=== PATIENT | female | born 1980 | race Two or more races ===

== ENCOUNTER 2018-09-17 08:16 | Emergency (ER) | payer MEDICAID ==
[~2018-09-17] VITALS: Ht 154.9 cm; Wt 79.4 kg
[~2018-09-17 08:16] MED LIST: CEPH-91
[2018-09-17 08:24] VITALS: BP 123/79
== END 2018-09-17 09:03 | disposition home or self-care (01) ==
LOC: ER 08:16
DX: M79.645 Pain in left finger(s) (principal); Z88.5 Allergy status to narcotic agent; Z79.899 Other long term (current) drug therapy; Z98.51 Tubal ligation status
CPT/HCPCS: 29125; 29130; 73130

== ENCOUNTER 2019-01-04 13:23 | Emergency (ER) | payer MEDICAID ==
[~2019-01-04] VITALS: Ht 154.9 cm; Wt 77.1 kg
[2019-01-04 14:17] LABS: Basophils # (auto) 0.1 uL; Eosinophils # (auto) 0.2 uL; Mean Corpuscular Volume 72.1 fL (80.0-100.0); Monocytes # (auto) 0.9 uL; Nucleated Red Blood Cells % 0.1 %
[2019-01-04 14:18] LABS: Basophils % (auto) 0.8 % (0.0-2.0); Hematocrit 37.9 % (36.0-46.0); Hemoglobin 12.4 g/dL (12.2-16.2); Lymphocytes # (auto) 1.2 uL; Lymphocytes % (auto) 15.2 % (10.0-50.0); Mean Corpuscular Hemoglobin 23.5 pg (28.0-32.0); Mean Corpuscular Hgb Conc. 32.7 g/dL (32.0-36.0); Monocytes % (auto) 11.2 % (0.0-12.0); Neutrophils # (auto) 5.4 uL; Neutrophils % (auto) 70.8 % (37.0-80.0); Platelet Count (auto) 226 10^3/uL (140-450); Red Blood Cells 5.26 10^6/uL (4.0-5.20); Red Cell Distribution Width 17.3 % (11.8-14.3); White Blood Cell 7.6 10^3/uL (4.4-10.8)
[2019-01-04 14:30] LABS: Alanine Aminotransferase 31 U/L (13-56); Albumin 3.8 g/dL (3.4-5.0); Anion Gap 6 (5-15); Aspartate Aminotransferase 14 U/L (15-37); BUN/Creatinine Ratio 20.6; Blood Urea Nitrogen 14 mg/dL (7-18); Calcium 8.8 mg/dL (8.5-10.1); Carbon Dioxide 26 mmol/L (21-32); Chloride 107 mmol/L (98-107); GFR African American 126 mL/min; GFR Non-African American 104 mL/min; Glucose 98 mg/dL (74-106); Sodium 139 mmol/L (136-145)
[2019-01-04 14:35] LABS: Alkaline Phosphatase 76 U/L (45-117); Bilirubin, Total 0.2 mg/dL (0.2-1.0); Total Protein 7.9 g/dL (6.4-8.2)
[2019-01-04] MEDS ORDERED: cefTRIAXone SOD 1,000 MG VL IM ONE (16:00)
[2019-01-04] MEDS ORDERED: KETOROLAC TROMETH 60MG/2ML VIAL IM ONE ×3 (16:30→16:45)
[2019-01-04 16:54] VITALS: BP 143/84
== END 2019-01-04 17:57 | disposition home or self-care (01) ==
LOC: ER 13:35
DX: J20.9 Acute bronchitis, unspecified (principal); R07.89 Other chest pain; Z98.51 Tubal ligation status; Z88.6 Allergy status to analgesic agent
CPT/HCPCS: 36415; 71046; 80053; 84484; 85025; 93005; 96372; 99284; J0696; J1885

== ENCOUNTER 2019-10-20 12:13 | Emergency (ER) | payer MEDICAID ==
[~2019-10-20] VITALS: Ht 154.9 cm; Wt 79.4 kg
[2019-10-20 13:31] LABS: Urine Bacteria NONE SEEN /hpf (None Seen); Urine Blood Negative /uL (Negative); Urine Specific Gravity 1.024 (1.001-1.035); Urine WBC 26 /hpf (0 - 5)
[2019-10-20 14:02] LABS: Basophils # (auto) 0.1 uL; Basophils % (auto) 0.7 % (0.0-2.0); Eosinophils # (auto) 0.1 uL; Eosinophils % (auto) 1.3 % (0.0-7.0); Hematocrit 33.3 % (36.0-46.0); Hemoglobin 10.2 g/dL (12.2-16.2); Lymphocytes # (auto) 1.7 uL; Lymphocytes % (auto) 21.8 % (10.0-50.0); Mean Corpuscular Hemoglobin 20.3 pg (28.0-32.0); Mean Corpuscular Hgb Conc. 30.7 g/dL (32.0-36.0); Mean Corpuscular Volume 66.2 fL (80.0-100.0); Monocytes # (auto) 0.6 uL; Monocytes % (auto) 7.8 % (0.0-12.0); Neutrophils # (auto) 5.4 uL; Neutrophils % (auto) 68.4 % (37.0-80.0); Platelet Count (auto) 277 10^3/uL (140-450); Red Blood Cells 5.03 10^6/uL (4.0-5.20); Red Cell Distribution Width 17.6 % (11.8-14.3); White Blood Cell 7.9 10^3/uL (4.4-10.8)
[2019-10-20 14:23] LABS: Albumin 3.4 g/dL (3.4-5.0); Anion Gap 6 (5-15); Blood Urea Nitrogen 13 mg/dL (7-18); Calcium 8.3 mg/dL (8.5-10.1); Carbon Dioxide 23 mmol/L (21-32); Chloride 111 mmol/L (98-107); Glucose 89 mg/dL (74-106); Potassium 3.9 mmol/L (3.5-5.1); Sodium 140 mmol/L (136-145)
[2019-10-20 14:28] LABS: Alanine Aminotransferase 20 U/L (13-56); Alkaline Phosphatase 73 U/L (45-117); Aspartate Aminotransferase 11 U/L (15-37); BUN/Creatinine Ratio 22.4; Bilirubin, Total 0.2 mg/dL (0.2-1.0); GFR African American 150 mL/min; GFR Non-African American 124 mL/min; Total Protein 7.7 g/dL (6.4-8.2)
[2019-10-20] MEDS ORDERED: IOHEXOL 350 MG/ML 100ML IJ ONE (14:49)
[2019-10-20 18:15] VITALS: BP 144/87
== END 2019-10-20 18:19 | disposition home or self-care (01) ==
LOC: ER 12:13
DX: R07.9 Chest pain, unspecified (principal); N39.0 Urinary tract infection, site not specified; Z98.51 Tubal ligation status; Z88.8 Allergy status to other drugs, medicaments and biological substances
CPT/HCPCS: 36415; 71046; 71275; 80053; 81001; 84484; 85025; 99285; Q9967

== ENCOUNTER → 2019-10-21 | Emergency (ER) | payer MEDICAID ==
[~2019-10-21] VITALS: Ht 154.9 cm; Wt 79.4 kg
[2019-10-21 13:43] VITALS: BP 115/72
== END | disposition home or self-care (01) ==
LOC: ER 11:19
DX: R07.89 Other chest pain (principal); Z88.5 Allergy status to narcotic agent; Z79.899 Other long term (current) drug therapy
CPT/HCPCS: 36415; 84484; 85379; 93005

== ENCOUNTER 2019-11-01 13:01 | Emergency (ER) | payer OTHER, MEDICAID ==
[~2019-11-01] VITALS: Ht 154.9 cm; Wt 79.4 kg
[2019-11-01] MEDS ORDERED: MORPHINE SULFATE 10 MG/ML INJ 1ML SDV IM ONE (15:00)
[2019-11-01] MEDS ORDERED: PROMETHAZINE HCL 25 MG/ML 1ML IM ONE (15:00)
[2019-11-01 16:21] VITALS: BP 129/87
--- NOTE | 2019-11-03 09:44 | NUR ---
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
== END 2019-11-01 16:36 | disposition home or self-care (01) ==
LOC: EDBD 13:01 → ER 13:01
DX: S32.592A Other specified fracture of left pubis, initial encounter for closed fracture (principal); S32.512A Fracture of superior rim of left pubis, initial encounter for closed fracture; Z88.5 Allergy status to narcotic agent; Z79.2 Long term (current) use of antibiotics; V43.52XA Car driver injured in collision with other type car in traffic accident, initial encounter; Y93.89 Activity, other specified; Y92.410 Unspecified street and highway as the place of occurrence of the external cause; Y99.8 Other external cause status
CPT/HCPCS: 72192; 73502; 96372; 99284; J2270; J2550

== ENCOUNTER 2021-06-01 10:46 | Emergency (ER) | payer MEDICAID ==
[~2021-06-01] VITALS: Ht 154.9 cm; Wt 86.2 kg
[2021-06-01] MEDS ORDERED: SODIUM CHLORIDE 0.9% 1,000 ML IV ONE (11:00)
[2021-06-01] MEDS ORDERED: SODIUM CHLORIDE 0.9% 500 ML IVB ONE (11:00)
[2021-06-01 12:14] LABS: Basophils # (auto) 0.1 10 ^3/uL (0-0.2); Eosinophils # (auto) 0.1 10 ^3/uL (0-0.8); Monocytes # (auto) 0.3 10 ^3/uL (0-1.3); White Blood Cell 6.6 10^3/uL (4.4-10.8)
[2021-06-01 12:16] LABS: Basophils % (auto) 0.8 % (0.0-2.0); Eosinophils % (auto) 1.2 % (0.0-7.0); Hematocrit 34.9 % (36.0-46.0); Hemoglobin 11.4 g/dL (12.2-16.2); Lymphocytes # (auto) 1.4 10 ^3/uL (0.4-5.4); Lymphocytes % (auto) 21.4 % (10.0-50.0); Mean Corpuscular Hemoglobin 22.4 pg (28.0-32.0); Mean Corpuscular Hgb Conc. 32.7 g/dL (32.0-36.0); Mean Corpuscular Volume 68.6 fL (80.0-100.0); Monocytes % (auto) 5.1 % (0.0-12.0); Neutrophils # (auto) 4.7 10 ^3/uL (1.6-8.6); Neutrophils % (auto) 71.5 % (37.0-80.0); Nucleated Red Blood Cells % 0.1 %; Red Blood Cells 5.08 10^6/uL (4.0-5.20); Red Cell Distribution Width 17.2 % (11.8-14.3)
[2021-06-01 12:37] LABS: Albumin 3.5 g/dL (3.4-5.0); Calcium 8.7 mg/dL (8.5-10.1); Magnesium 2.4 mg/dL (1.6-2.6); Potassium 3.6 mmol/L (3.5-5.1)
[2021-06-01 12:39] LABS: BUN/Creatinine Ratio 18.6
[2021-06-01 12:40] LABS: Bilirubin, Total 0.2 mg/dL (0.2-1.0); Total Protein 7.5 g/dL (6.4-8.2)
[2021-06-01 17:08] VITALS: BP 139/76
== END 2021-06-01 17:17 | disposition home or self-care (01) ==
LOC: ER 10:46
DX: S09.90XA Unspecified injury of head, initial encounter (principal); G44.329 Chronic post-traumatic headache, not intractable; D50.9 Iron deficiency anemia, unspecified; R73.9 Hyperglycemia, unspecified; Z98.51 Tubal ligation status; W19.XXXA Unspecified fall, initial encounter; Y93.89 Activity, other specified; Y99.8 Other external cause status; Y92.89 Other specified places as the place of occurrence of the external cause
CPT/HCPCS: 36415; 70450; 80053; 83735; 84702; 85025; 93005

== ENCOUNTER 2021-07-20 17:43 | Emergency (ER) | payer MEDICAID ==
[~2021-07-20] VITALS: Ht 154.9 cm; Wt 77.1 kg
[2021-07-20] MEDS ORDERED: SODIUM CHLORIDE 0.9% 1,000 ML IV ONE (18:45)
[2021-07-20] MEDS ORDERED: KETOROLAC TROMETH 30 MG/ML 1ML VIAL IV ONE (18:45)
[2021-07-20 19:35] LABS: Basophils # (auto) 0 10 ^3/uL (0-0.2); Basophils % (auto) 0.2 % (0.0-2.0); Eosinophils # (auto) 0 10 ^3/uL (0-0.8); Hematocrit 40.5 % (36.0-46.0); Hemoglobin 12.9 g/dL (12.2-16.2); Lymphocytes # (auto) 0.5 10 ^3/uL (0.4-5.4); Mean Corpuscular Hemoglobin 22.3 pg (28.0-32.0); Mean Corpuscular Hgb Conc. 31.9 g/dL (32.0-36.0); Mean Corpuscular Volume 69.7 fL (80.0-100.0); Monocytes # (auto) 0.4 10 ^3/uL (0-1.3); Monocytes % (auto) 8.5 % (0.0-12.0); Neutrophils # (auto) 3.3 10 ^3/uL (1.6-8.6); Neutrophils % (auto) 80.3 % (37.0-80.0); Nucleated Red Blood Cells % 0.4 %; Red Blood Cells 5.81 10^6/uL (4.0-5.20); Red Cell Distribution Width 17.7 % (11.8-14.3); White Blood Cell 4.1 10^3/uL (4.4-10.8)
[2021-07-20 19:52] LABS: Magnesium 2.3 mg/dL (1.6-2.6)
[2021-07-20 20:01] LABS: Beta HCG, Quantitative < 1 mlU/mL (1-3); Lactate Dehydrogenase 388 U/L (84-246)
[2021-07-20 21:15] LABS: INR 1.04 (0.9-1.15); Partial Thromboplastin Time 31.9 sec (23.6-33.0)
[2021-07-20 22:36] LABS: Albumin 3.6 g/dL (3.4-5.0); Calcium 8.7 mg/dL (8.5-10.1); Potassium 3.2 mmol/L (3.5-5.1)
[2021-07-20 22:39] LABS: BUN/Creatinine Ratio 11.4; Bilirubin, Total 0.4 mg/dL (0.2-1.0)
[2021-07-21] MEDS ORDERED: BENZ100C19 PO (00:44)
[2021-07-21] MEDS ORDERED: IBUP600T28 PO (00:44)
[2021-07-21 00:45] VITALS: BP 108/69
== END 2021-07-21 01:02 | disposition home or self-care (01) ==
LOC: EDBD 17:43 → ER 17:43
DX: U07.1 COVID-19 (principal); Z98.51 Tubal ligation status; Z98.890 Other specified postprocedural states
CPT/HCPCS: 36415; 71045; 80053; 82728; 83605; 83615; 83690; 83735; 83880; 84484; 84702; 85025; 85379; 85610; 85730; 87426; 93005; 96361; 96374; 99285; J1885; J7030

== ENCOUNTER 2021-07-23 12:15 | Inpatient (IN) | payer MEDICAID ==
[~2021-07-23] VITALS: Ht 154.9 cm; Wt 87.0 kg
[~2021-07-23 12:15] MED LIST changes: +BENZ100C19 PO; +IBUP600T28 PO
[2021-07-23] MEDS ORDERED: AZITHROMYCIN 500MG/ 250ML 250 ML IV ONE (13:00)
[2021-07-23] MEDS ORDERED: cefTRIAXone 1GM/50ML D5W 50 ML IV ONE (13:00)
[2021-07-23] MEDS ORDERED: DexAMETHasone SOD PHOS 10MG/1ML VIAL INJ IV ONE (13:00)
[2021-07-23 14:01] LABS: Basophils # (auto) 0 10 ^3/uL (0-0.2); Eosinophils # (auto) 0 10 ^3/uL (0-0.8); Lymphocytes # (auto) 0.6 10 ^3/uL (0.4-5.4); White Blood Cell 5.2 10^3/uL (4.4-10.8)
[2021-07-23 14:05] LABS: Basophils % (auto) 0.2 % (0.0-2.0); Hematocrit 34.5 % (36.0-46.0); Hemoglobin 11.6 g/dL (12.2-16.2); Lymphocytes % (auto) 12.4 % (10.0-50.0); Mean Corpuscular Hemoglobin 23.1 pg (28.0-32.0); Mean Corpuscular Hgb Conc. 33.6 g/dL (32.0-36.0); Mean Corpuscular Volume 68.5 fL (80.0-100.0); Monocytes # (auto) 0.5 10 ^3/uL (0-1.3); Monocytes % (auto) 9.1 % (0.0-12.0); Neutrophils % (auto) 78.3 % (37.0-80.0); Red Blood Cells 5.03 10^6/uL (4.0-5.20); Red Cell Distribution Width 17.7 % (11.8-14.3)
[2021-07-23 14:23] LABS: Albumin 2.9 g/dL (3.4-5.0); Potassium 3.7 mmol/L (3.5-5.1)
[2021-07-23 14:30] LABS: BUN/Creatinine Ratio 8.2; Bilirubin, Total 0.3 mg/dL (0.2-1.0); Total Protein 7.2 g/dL (6.4-8.2)
[2021-07-23 16:20] LABS: Urine Bacteria NONE SEEN /hpf (None Seen); Urine Blood Negative /uL (Negative); Urine Specific Gravity 1.005 (1.001-1.035); Urine WBC 1 /hpf (0 - 5)
[2021-07-23] MEDS ORDERED: REMDESIVIR PER PHARMACY 0 ML IV SCH (19:15)
[2021-07-23] MEDS ORDERED: MORPHINE SULFATE INJECTION 2 MG/ML SYRG IV PRN (19:15)
[2021-07-23] MEDS ORDERED: NITROGLYCERIN 0.4 MG SL TAB SL PRN (19:15)
[2021-07-23] MEDS ORDERED: LACTULOSE 20Gm/30ML SOLN PO PRN (19:30)
[2021-07-23] MEDS ORDERED: ACETAMINOPHEN 500 MG TAB PO PRN (19:30)
[2021-07-23] MEDS ORDERED: TEMAZEPAM 15 MG CAP PO PRN (19:30)
[2021-07-23] MEDS ORDERED: traMADol HCL 50 MG TAB PO PRN (19:30)
[2021-07-23] MEDS ORDERED: PROMETHAZINE HCL 25 MG/ML 1ML IV PRN (19:30)
[2021-07-23] MEDS: SODIUM CHLORIDE 0.9% 1,000 ML IV SCH (20:22)
[2021-07-23 21:16] VITALS: BP 118/67
[2021-07-23] MEDS: ENOXAPARIN SOD 40 MG/0.4 ML SYRINGE SC SCH (22:17)
[2021-07-23] MEDS: DOXYCYCLINE 100 MG TAB/CAP PO SCH (22:17)
[2021-07-23 22:48] VITALS: BP 107/68
[2021-07-24 05:00] VITALS: BP 101/69
[2021-07-24] MEDS ORDERED: REMDESIVIR PER PHARMACY 0 ML IV SCH (06:45)
[2021-07-24] MEDS: BUDESONIDE (INHALATION) 180 MCG IH IN SCH ×3 (07:24→21:10)
[2021-07-24] MEDS: ALBUTEROL SULF HFA 90MCG INH 200DOSE IN PRN ×3 (07:24→12:44)
[2021-07-24 07:34] LABS: Basophils # (auto) 0 10 ^3/uL (0-0.2); Eosinophils # (auto) 0 10 ^3/uL (0-0.8); Nucleated Red Blood Cells % 0.2 %
[2021-07-24 07:38] LABS: Basophils % (auto) 0.2 % (0.0-2.0); Hematocrit 31.5 % (36.0-46.0); Hemoglobin 10.6 g/dL (12.2-16.2); Lymphocytes # (auto) 0.6 10 ^3/uL (0.4-5.4); Lymphocytes % (auto) 17.1 % (10.0-50.0); Mean Corpuscular Hgb Conc. 33.8 g/dL (32.0-36.0); Monocytes # (auto) 0.5 10 ^3/uL (0-1.3); Monocytes % (auto) 16.2 % (0.0-12.0); Neutrophils # (auto) 2.2 10 ^3/uL (1.6-8.6); Neutrophils % (auto) 66.5 % (37.0-80.0); Red Blood Cells 4.57 10^6/uL (4.0-5.20); Red Cell Distribution Width 17.7 % (11.8-14.3); White Blood Cell 3.3 10^3/uL (4.4-10.8)
[2021-07-24 07:44] LABS: Mean Corpuscular Volume 68.9 fL (80.0-100.0)
[2021-07-24 07:45] LABS: Mean Corpuscular Hemoglobin 23.2 pg (28.0-32.0)
[2021-07-24 07:51] LABS: Albumin 2.8 g/dL (3.4-5.0); Potassium 4.1 mmol/L (3.5-5.1)
[2021-07-24 07:54] LABS: BUN/Creatinine Ratio 15.8; Bilirubin, Total 0.3 mg/dL (0.2-1.0)
[2021-07-24 08:49] VITALS: BP 116/76
[2021-07-24] MEDS: SODIUM CHLORIDE 0.9% 1,000 ML IV SCH ×2 (08:56→22:10)
[2021-07-24] MEDS: DOXYCYCLINE 100 MG TAB/CAP PO SCH ×2 (09:00→22:00)
[2021-07-24] MEDS: ZINC SULFATE 220mg CAP or TAB PO SCH (09:00)
[2021-07-24] MEDS: IVERMECTIN 3 MG TAB PO SCH (09:00)
[2021-07-24] MEDS: ASCORBIC ACID 1,000 MG TAB PO SCH (09:01)
[2021-07-24] MEDS: CHOLECALCIFEROL (VITD3) 2,000 UNIT CAP/TAB PO SCH (09:02)
[2021-07-24] MEDS: ENOXAPARIN SOD 40 MG/0.4 ML SYRINGE SC SCH ×2 (09:02→22:02)
[2021-07-24 12:52] VITALS: BP 103/67
[2021-07-24] MEDS: AZITHROMYCIN 500MG/ 250ML 250 ML IV SCH (14:38)
[2021-07-24] MEDS: cefTRIAXone 1GM/50ML D5W 50 ML IV SCH (14:38)
[2021-07-24] MEDS: DexAMETHasone SOD PHOS 10MG/1ML VIAL INJ IV SCH (14:38)
[2021-07-24] MEDS ORDERED: REMDESIVIR 200 MG in NS 210ml LOADING DOSE ADULT IV ONE (15:00)
[2021-07-24 16:47] VITALS: BP 110/80
[2021-07-24 22:00] VITALS: BP 97/68
[2021-07-25 04:48] VITALS: BP 96/66
[2021-07-25 06:47] LABS: Basophils # (auto) 0 10 ^3/uL (0-0.2); Basophils % (auto) 0.1 % (0.0-2.0); Eosinophils # (auto) 0 10 ^3/uL (0-0.8); Hematocrit 28.9 % (36.0-46.0); Hemoglobin 9.6 g/dL (12.2-16.2); Lymphocytes # (auto) 1.2 10 ^3/uL (0.4-5.4); Lymphocytes % (auto) 29.8 % (10.0-50.0); Mean Corpuscular Hgb Conc. 33.2 g/dL (32.0-36.0); Monocytes # (auto) 0.5 10 ^3/uL (0-1.3); Monocytes % (auto) 13.2 % (0.0-12.0); Neutrophils # (auto) 2.2 10 ^3/uL (1.6-8.6); Neutrophils % (auto) 55.9 % (37.0-80.0); Nucleated Red Blood Cells % 0.1 %; Red Blood Cells 4.11 10^6/uL (4.0-5.20); Red Cell Distribution Width 17.4 % (11.8-14.3); White Blood Cell 3.9 10^3/uL (4.4-10.8)
[2021-07-25 06:48] LABS: Mean Corpuscular Hemoglobin 23.4 pg (28.0-32.0); Mean Corpuscular Volume 70.4 fL (80.0-100.0)
[2021-07-25 06:53] LABS: Potassium 3.4 mmol/L (3.5-5.1)
[2021-07-25 07:05] LABS: Albumin 2.2 g/dL (3.4-5.0); BUN/Creatinine Ratio 28.6; Bilirubin, Total 0.2 mg/dL (0.2-1.0); CRP High Sensitivity 1.96 mg/dL (< 0.3); Calcium 7.3 mg/dL (8.5-10.1); Total Protein 5.8 g/dL (6.4-8.2)
[2021-07-25 08:38] VITALS: BP 104/68
[2021-07-25] MEDS: AZITHROMYCIN 500MG/ 250ML 250 ML IV SCH (08:52)
[2021-07-25] MEDS: DexAMETHasone SOD PHOS 10MG/1ML VIAL INJ IV SCH (08:52)
[2021-07-25] MEDS: ZINC SULFATE 220mg CAP or TAB PO SCH (08:52)
[2021-07-25] MEDS: IVERMECTIN 3 MG TAB PO SCH (08:52)
[2021-07-25] MEDS: cefTRIAXone 1GM/50ML D5W 50 ML IV SCH (08:52)
[2021-07-25] MEDS: ENOXAPARIN SOD 40 MG/0.4 ML SYRINGE SC SCH (08:53)
[2021-07-25] MEDS: ASCORBIC ACID 1,000 MG TAB PO SCH (08:53)
[2021-07-25] MEDS: DOXYCYCLINE 100 MG TAB/CAP PO SCH (08:53)
[2021-07-25] MEDS: CHOLECALCIFEROL (VITD3) 2,000 UNIT CAP/TAB PO SCH (08:53)
[2021-07-25] MEDS: ALBUTEROL SULF HFA 90MCG INH 200DOSE IN PRN (09:16)
[2021-07-25] MEDS: BUDESONIDE (INHALATION) 180 MCG IH IN SCH (09:16)
[2021-07-25] MEDS: SODIUM CHLORIDE 0.9% 1,000 ML IV SCH (10:21)
[2021-07-25 12:40] VITALS: BP 99/70
[2021-07-25] MEDS ORDERED: REMDESIVIR 100mg 100 MG in SODIUM CHL 0.9% 230 ML IV SCH (15:00)
[2021-07-25] MEDS ORDERED: ALBUAER3 IN (15:09)
[2021-07-25] MEDS ORDERED: DOX100T PO (15:09)
[2021-07-25] MEDS ORDERED: DEXA6TAB6 PO (15:09)
[2021-07-25 17:21] VITALS: BP 121/71
[2021-07-25 18:05] VITALS: BP 121/71
== END 2021-07-25 19:30 | disposition home health service (06) | DRG 137 ==
LOC: EDBD 12:15 → ER 12:15 → TELE 19:10 → TELE-WESTW 21:42 → TELE-EAST 07-24 01:05
PROVIDERS: ADMIT Internal Medicine; ATTEND Internal Medicine
PROC: 05HB33Z Insertion of Infusion Device into Right Basilic Vein, Percutaneous Approach (ICD-10-PCS; principal; 2021-07-24)
PROC: B54MZZA Ultrasonography of Right Upper Extremity Veins, Guidance (ICD-10-PCS; 2021-07-24)
PROC: XW033E5 Introduction of Remdesivir Anti-infective into Peripheral Vein, Percutaneous Approach, New Technology Group 5 (ICD-10-PCS; 2021-07-24)
DX: U07.1 COVID-19 (principal); J96.01 Acute respiratory failure with hypoxia; J12.82 Pneumonia due to coronavirus disease 2019; E66.9 Obesity, unspecified; F41.9 Anxiety disorder, unspecified; Z68.36 Body mass index [BMI] 36.0-36.9, adult; Z80.9 Family history of malignant neoplasm, unspecified; Z82.49 Family history of ischemic heart disease and other diseases of the circulatory system; Z83.3 Family history of diabetes mellitus
CPT/HCPCS: 36415; 36600; 71045; 74176; 80053; 81001; 82728; 82805; 83036; 84484; 85025; 85379; 86141; 87426; 93005; 93970; 94640; 96365; 96368; 96375; 99291; G0378; J0696; J1100

== ENCOUNTER 2023-01-22 21:27 | Emergency (ER) | payer MEDICAID, OTHER ==
[~2023-01-22] VITALS: Ht 154.9 cm; Wt 92.0 kg
[~2023-01-22 21:27] MED LIST changes: +ALBUAER3 IN; -BENZ100C19 PO; -CEPH-91; +DEXA6TAB6 PO; +DOX100T PO; -IBUP600T28 PO
[2023-01-22] MEDS ORDERED: IBUP-1456 PO (23:24)
[2023-01-23 00:05] VITALS: BP 143/86
== END 2023-01-22 23:43 | disposition home or self-care (01) ==
LOC: ER 21:30
DX: S83.91XA Sprain of unspecified site of right knee, initial encounter (principal); F41.9 Anxiety disorder, unspecified; Z79.899 Other long term (current) drug therapy; Z98.890 Other specified postprocedural states; Z98.51 Tubal ligation status; W01.0XXA Fall on same level from slipping, tripping and stumbling without subsequent striking against object, initial encounter; Y93.89 Activity, other specified; Y92.89 Other specified places as the place of occurrence of the external cause; Y99.8 Other external cause status
CPT/HCPCS: 29505; 73562

== ENCOUNTER 2023-09-04 16:15 | Emergency (ER) | payer MEDICAID, OTHER ==
[~2023-09-04] VITALS: Ht 154.9 cm; Wt 84.1 kg
[~2023-09-04 16:15] MED LIST changes: +IBUP-1456 PO
[2023-09-04 23:29] VITALS: BP 140/94; PULSE 76; RESP 18; TEMP 97.6; O2SAT 98
[2023-09-04] MEDS ORDERED: CYCL-837 PO (23:42)
[2023-09-04] MEDS ORDERED: ACET500T58 PO (23:42)
== END 2023-09-05 00:38 | disposition home or self-care (01) ==
LOC: EDBD 16:15 → ER 16:15
DX: S39.012A Strain of muscle, fascia and tendon of lower back, initial encounter (principal); S63.91XA Sprain of unspecified part of right wrist and hand, initial encounter; S70.02XA Contusion of left hip, initial encounter; S30.1XXA Contusion of abdominal wall, initial encounter; I72.8 Aneurysm of other specified arteries; Z79.1 Long term (current) use of non-steroidal anti-inflammatories (NSAID); Z79.2 Long term (current) use of antibiotics; Z79.899 Other long term (current) drug therapy; V43.52XA Car driver injured in collision with other type car in traffic accident, initial encounter; Y93.89 Activity, other specified; Y92.410 Unspecified street and highway as the place of occurrence of the external cause; Y99.8 Other external cause status
CPT/HCPCS: 74176

== ENCOUNTER 2024-05-28 20:22 | Emergency (ER) | payer MEDICAID ==
[~2024-05-28] VITALS: Ht 154.9 cm; Wt 83.2 kg
[~2024-05-28 20:22] MED LIST changes: +ACET500T58 PO; +CYCL-837 PO
[2024-05-29 00:04] LABS: Basophils # (auto) 0.1 10 ^3/uL (0-0.2); Basophils % (auto) 0.8 % (0.0-2.0); Eosinophils # (auto) 0.1 10 ^3/uL (0-0.8); Eosinophils % (auto) 0.9 % (0.0-7.0); Lymphocytes # (auto) 2.4 10 ^3/uL (0.4-5.4); Lymphocytes % (auto) 26.8 % (10.0-50.0); Mean Corpuscular Hemoglobin 27.5 pg (28.0-32.0); Mean Corpuscular Hgb Conc. 34.2 g/dL (32.0-36.0); Mean Corpuscular Volume 80.3 fL (80.0-100.0); Monocytes # (auto) 0.6 10 ^3/uL (0-1.3); Monocytes % (auto) 6.5 % (0.0-12.0); Neutrophils # (auto) 5.9 10 ^3/uL (1.6-8.6); Nucleated Red Blood Cells % 0.1 %; Platelet Count (auto) 227 10^3/uL (140-450); Red Blood Cells 5.11 10^6/uL (4.0-5.20); Red Cell Distribution Width 14.8 % (11.8-14.3)
[2024-05-29 00:16] LABS: Alanine Aminotransferase 25 U/L (7-40); Albumin 4.5 g/dL (3.2-4.8); Alkaline Phosphatase 88 U/L (46-116); Anion Gap 9 (5-15); Aspartate Aminotransferase 14 U/L (13-40); BUN/Creatinine Ratio 15.4 (10.0-20.0); Blood Urea Nitrogen 10 mg/dL (9-23); Calcium 9.5 mg/dL (8.7-10.4); Carbon Dioxide 24 mmol/L (20-31); Chloride 107 mmol/L (98-107); Creatine Kinase IFCC 57 U/L (34-145); Glucose 99 mg/dL (74-106); Potassium 3.7 mmol/L (3.5-5.1); Sodium 140 mmol/L (136-145)
[2024-05-29 00:17] LABS: Bilirubin, Total 0.4 mg/dL (0.2-1.0); Total Protein 7.4 g/dL (5.7-8.2)
[2024-05-29] MEDS ORDERED: NAP500T GT (00:39)
[2024-05-29 01:30] VITALS: BP 141/88; PULSE 65; RESP 13; TEMP 97.6; O2SAT 100
[2024-05-29 01:36] LABS: Urine Bacteria FEW /hpf (None Seen); Urine Blood Negative /uL (Negative); Urine Clarity Turbid (Clear); Urine Color Light-Yellow (Yellow); Urine Mucus FEW (None Seen); Urine Protein, UAD Negative (Negative); Urine Urobilinogen Normal (Negative); Urine WBC 4 /hpf (0 - 5); Urine pH 6.5 (5.0-9.0)
== END 2024-05-29 01:37 | disposition home or self-care (01) ==
LOC: ER 20:22
DX: M79.10 Myalgia, unspecified site (principal); F41.9 Anxiety disorder, unspecified; G43.909 Migraine, unspecified, not intractable, without status migrainosus; Z98.890 Other specified postprocedural states; Z79.899 Other long term (current) drug therapy
CPT/HCPCS: 36415; 70450; 80053; 81001; 82550; 85025

== ENCOUNTER 2025-06-03 08:32 | Emergency (ER) | payer MEDICAID ==
[~2025-06-03] VITALS: Ht 154.9 cm; Wt 87.8 kg
[~2025-06-03 08:32] MED LIST changes: +NAP500T GT
[2025-06-03] MEDS: KETOROLAC TROMETH 60MG/2ML VIAL IM ONE (09:15)
--- NOTE | 2025-06-03 09:29 | ED.PDOC ---
Musculoskeletal HPI Comments A 44 YEAR OLD FEMALE PRESENTS TO THE ED WITH COMPLAINT OF L HIP PAIN. PT STATES SHE HAS BEEN HAVING L HIP PAIN FOR THE PAST 4X DAYS. PT STATES HER PAIN IS CONSTANT, NONRADIATING BUT STATES SHE HAS INCREASED PAIN WITH AMBULATING BUT OTHERWISE DENIES ANY OTHER SYMPTOMS. PT DENIES DENIES ANY RECENT INJURY OR FALL. PT STATES SHE WAS MOVING 3X WEEKS PRIOR AND LIFTING HEAVY BOXES. PATIENT DENIES FEVER, CHILLS, SHORTNESS OF BREATH, CHEST PAIN, ABDOMINAL PAIN, NAUSEA, VOMITING, HEADACHE, OR OTHER COMPLAINTS. NO OTHER SYMPTOMS OR MODIFYING FACTORS AT THIS TIME. PATIENT IS ALERT, ORIENTED X 4, AND HAS STEADY GAIT. Chief Complaint: Body Pain Time Seen by MD: 09:23 Primary Care Provider: CINDY Villavicencio Notes: Medications, Allergies Allergies: Coded Allergies: NO KNOWN ALLERGIES (Unverified , 11/01/19) Home Meds Active Scripts Ibuprofen (Ibuprofen) 800 Mg Tab, 1 TAB PO TID, #30 TAB Prov:LEXI BRAVO 06/03/25 Naproxen (NAPROSYN TABLET) 500 Mg Tb, 500 MG GT BID for 10 Days, #20 TAB Prov:NOAH CAMILO MD 05/29/24 Acetaminophen (Acetaminophen) 500 Mg Tab, 500 MG PO Q6HPRN, #30 TAB 0 Refills Prov:RICHARD ARREDONDO 09/04/23 Cyclobenzaprine Hcl (Cyclobenzaprine Hcl) 5 Mg Tab, 1 TAB PO QPM PRN, #14 TAB 0 Refills Prov:RICHARD ARREDONDO 09/04/23 Ibuprofen (Ibuprofen) 800 Mg Tab, 1 TAB PO TID PRN, #30 TAB 0 Refills Prov:RICHARD ARREDONDO 01/22/23 Dexamethasone (Decadron) 6 Mg Tab, 6 MG PO DAILY, #7 TAB Prov:SANTA VALDEZ MD 07/25/21 Albuterol Sulfate (VENTOLIN MDI) 90 Mcg Ih, 90 MCG IN Q4HPRN PRN, #1 INHALER Prov:SANTA VALDEZ MD 07/25/21 Doxycycline Monohydrate (Doxycycline Monohydrate) 100 Mg Tab, 100 MG PO BID, #14 TAB Prov:SANTA VALDEZ MD 07/25/21 Information Source: Patient Mode of Arrival: Ambulatory Brought in by: SELF Location: Left Extremity Location: Hip Timing: Days Severity: Moderate Able to Move Extremity: Yes Bear Weight: Fully Pain: Moderate Hand Dominance: Left Circumstances: Playing Onset of Symptoms: During Exercise Symptoms: Pain DVT Risk Factors: NONE Last Tetanus: UTD Associated signs and symptoms: Hip pain Past Medical History PAST MEDICAL HISTORY: Anxiety Surgical History: , Hernia Repair, Tubal Ligation 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 Family History Family History: Reviewed,noncontributory to illness, Unknown Social History Smoker: Non-Smoker Alcohol: Occasionally Drugs: Denies Drug Use Lives In: Home Constitutional: denies: chills, diaphoresis, fatigue, fever, malaise, sweats, weakness, others EENTM: denies: blurred vision, double vision, ear bleeding, ear discharge, ear drainage, ear pain, ear ringing, eye pain, eye redness, hearing loss, mouth pain, mouth swelling, nasal discharge, nose bleeding, nose congestion, nose pain, photophobia, tearing, throat pain, throat swelling, voice changes, others Respiratory: denies: cough, hemoptysis, orthopnea, SOB at rest, shortness of breath, SOB with excertion, stridor, wheezing, others Cardiovascular: denies: chest pain, dizzy spells, diaphoresis, Dyspnea on exertion, edema, irregular heart beat, left arm pain, lightheadedness, palpitations, PND, syncope, others Gastrointestinal: denies: abdomen distended, abdominal pain, blood streaked bowels, constipated, diarrhea, dysphagia, difficulty swallowing, hematemesis, melena, nausea, poor appetite, poor fluid intake, rectal bleeding, rectal pain, vomiting, others Genitourinary: denies: abnormal vagina bleeding, burning, dyspareunia, dysuria, flank pain, frequency, hematuria, incontinence, pain, , vagina discharge, urgency, others Neurological: denies: dizziness, fainting, headache, left sided numbness, left sided weakness, numbness, paresthesia, pre-existing deficit, right sided numbness, right sided weakness, seizure, speech problems, tingling, tremors, weakness, others Musculoskeletal: reports: joint pain (L HIP), muscle pain; denies: back pain, gout, joint swelling, muscle stiffness, neck pain, others Integumetry: denies: bruises, change in color, change in hair/nails, dryness, laceration, lesions, lumps, rash, wounds, others Allergic/Immunocompromised: denies: Difficulty Healing, Frequent Infections, Hives, Itching, others Hematologic/Lymphatic: denies: anemia, blood clots, easy bleeding, easy bruising, swollen glands, others Endocrine: denies: excessive hunger, excessive sweating, excessive thirst, excessive urination, flushing, intolerance to cold, intolerance to heat, unexplained weight gain, unexplained weight loss, others Psychiatric: denies: anxiety, bipolar disorder, depression, hopeless, panic disorder, schizophrenia, sleepless, suicidal, others All Other Systems: Reviewed and Negative Physical Exam General Appearance: No Apparent Distress, Obese HEENT: Normal ENT Inspection, PERRL/EOMI, Pharynx Normal, TMs Normal Neck: Full Range of Motion, Non-Tender, Normal, Normal Inspection Respiratory: Chest Non-Tender, Lungs Clear, No Accessory Muscle Use, No Respiratory Distress, Normal Breath Sounds Cardiovascular: No Edema, No JVD, No Murmur, No Gallop, Normal Peripheral Pu lses, Regular Rate/Rhythm Breast Exam: Deferred Gastrointestinal: No Organomegaly, Non Tender, No Pulsatile Mass, Normal Bowel Sounds, Soft Genitalia: Deferred Pelvic: Deferred Rectal: Deferred Extremities: No calf tenderness, Normal capillary refill, Normal inspection, Normal range of motion, No pedal edema, Tender (LEFT LATERAL HIP, NO BONY TENDERNESS, SWELLING AND DEFORMITY. NORMAL GAIT. ) Musculoskeletal : Apperance: Normal Neurologic: Alert, solvent mixer II-XII nml as Tested, No Motor Deficits, Normal Affect, Normal Mood, No Sensory Deficits Cerebellar Function: Normal Reflexes: Normal Skin: Dry, Normal Color, Warm Peripheral Pulses: 2+ carotid (R), 2+ carotid (L), 2+ dorsalis pedis (R), 2+ dorsalis pedis (L) Lymphatic: No Adenopathy Was a procedure done? Was a procedure done?: No Differential Diagnosis EXT Differential Diagnosis: Fracture, Sprain, Dislocation, Strain, Rheumatoid, Arthritis, Bursitis Other Differential Diagnosis LUMBAR RADICULOPATHY, DJD X-Ray, Labs, Meds, VS Vital Signs Date Time Temp Pulse Resp B/P (MAP) Pulse Ox O2 Delivery O2 Flow Rate FiO2 06/03/25 08:34 97.7 72 18 160/100 96 97.7 Current Medications Medications (Trade) Dose Ordered Sig/Kamran Route Start Time Stop Time Status Last Admin Ketorolac Tromethamine (Toradol Injection) 60 mg ONCE ONCE IM 06/03/25 09:15 06/03/25 09:16 DC 06/03/25 09:15 PATIENT: EDIL GOSS MACCT: [id number]: [id number] : 1980 LOC: ER ROOM / BED: / AGE / SEX: 44 / F ADM STATUS: REG ER SERVICE 5 ORDERING PHYSICIAN: LEXI BRAVO PROCEDURE(s): LHIP - L HIP COMPLETE XRAY REASON: HX OF LEFT PELVIC BONE FX 2 YEARS AGO. ORDER NUMBER(s): [id number], ACCESSION NUMBER(s): [id number] Left HIP RADIOGRAPH. CLINICAL INDICATION: HX OF LEFT PELVIC BONE FX 2 YEARS AGO. TECHNIQUE: 4 views of the left hip were obtained. FINDINGS: There is no evidence of fracture, subluxation or dislocation.The alignment is within normal limits.The bony mineralization is normal.No radiopaque foreign body is identified. IMPRESSION: 1. No evidence of acute bony injury. ATED BY: MILANA ALTMAN MD DICTATED DATE/TIME: 06/03/25946 SIGNED BY: MILANA ALTMAN MD SIGNED DATE/TIME: 06/03/25946 CC: X-Ray, Labs, Meds, VS Comment COURSE: EXTERNAL MEDICAL RECORDS REVIEWED: [NONE] INDEPENDENT HISTORIANS: [NONE] SOCIAL DETERMINANTS OF HEALTH: [NONE] LABS ORDERED: NONE REVIEWED AND INTERPRETED RESULTS: NONE IMAGING ORDERED: LEFT HIP X-RAY TREATMENTS ORDERED: TORADOL 60 MG, PROCEDURES PERFORMED: NONE CRITICAL CARE TIME: NONE I HAVE DISCUSSED THE PATIENT WITH THE ATTENDING PHYSICIAN, DR. TOVAR SHE AGREES WITH THE PATIENT'S PLAN OF CARE AND DISPOSITION. BASED ON HISTORY OF PRESENT ILLNESS, AND PHYSICAL EXAM, PATIENT WILL BE DISCHARGED HOME. DISCUSSED PLAN FOR DISCHARGE HOME WITH RX [MOTRIN 800MG ]. MEDICATION WARNINGS GIVEN. SHARED DECISION MAKING: DISCUSSED WITH PATIENT THAT THEIR WORKUP WAS NORMAL. PATIENT INSTRUCTED TO FOLLOW UP WITH PRIMARY CARE PROVIDER IN 1-2 DAYS FOR RE- EVALUATION OF SYMPTOMS. PATIENT VERBALIZES UNDERSTANDING TO RETURN TO ED FOR NEW OR WORSENING SYMPTOMS OR IF FOLLOW UP WITH PCP CANNOT BE OBTAINED. PATIENT FEELS COMFORTABLE GOING HOME AT THIS TIME. ALL QUESTIONS ADDRESSED AT TIME OF DISCHARGE. Time of 1ST Reevaluation: 10:00 Reevaluation 1ST: Improved Patient Education/Counseling: Diagnosis, Treatment, Need For Follow Up Family Education/Counseling: Diagnosis, Treatment, Need For Follow Up, No Family Present Medical Screening: No EMC Exist At This Time Departure 1 Departure Time of Disposition: 10:00 Impression: Primary Impression: Strain of left hip and thigh Qualified Codes: S76.012A - Strain of muscle, fascia and tendon of left hip, initial encounter; S76.912A - Strain of unspecified muscles, fascia and tendons at thigh level, left thigh, initial encounter Disposition: HOME / SELF CARE / HOMELESS Condition: Stable Additional Instructions: INSTRUCTIONS: FOLLOW-UP WITH PCP IN 1 TO 2 DAYS. TAKE MEDICATIONS PRESCRIBED. RETURN TO ED FOR ANY NEW OR WORSENING SYMPTOMS. e-Prescriptions Ibuprofen (Ibuprofen) 800 Mg Tab 1 TAB PO TID, #30 TAB Prov: LEXI BRAVO 06/03/25 Discharged With: Self Critical Care Note Critical Care Time?: No Stability Stability form required: No Heart Score Heart Score: Heart Score Response (Comments) Value History N/A 0 EKG N/A 0 Age N/A 0 Risk Factors N/A 0 Troponin N/A 0 Total 0 I personally scribed for LEXI BRAVO ([email or web address]) on 06/03/25 at 09:29. Electronically submitted by Kori BACA). LEXI BRAVO Jun 03, 2025 09:29
--- NOTE | 2025-06-03 09:49 | DVH ---
Left HIP RADIOGRAPH. CLINICAL INDICATION: HX OF LEFT PELVIC BONE FX 2 YEARS AGO. TECHNIQUE: 4 views of the left hip were obtained. FINDINGS: There is no evidence of fracture, subluxation or dislocation.The alignment is within normal limits.The bony mineralization is normal.No radiopaque foreign body is identified. IMPRESSION: 1. No evidence of acute bony injury.
[2025-06-03] MEDS ORDERED: IBUP-1456 PO (09:58)
[2025-06-03 09:59] VITALS: BP 151/84; PULSE 75; RESP 18; TEMP 97.7; O2SAT 96
== END 2025-06-03 10:02 | disposition home or self-care (01) ==
LOC: ER 08:32
DX: S76.912A Strain of unspecified muscles, fascia and tendons at thigh level, left thigh, initial encounter (principal); S76.012A Strain of muscle, fascia and tendon of left hip, initial encounter; Z98.890 Other specified postprocedural states; Z98.51 Tubal ligation status; X50.0XXA Overexertion from strenuous movement or load, initial encounter; Y93.89 Activity, other specified; Y92.89 Other specified places as the place of occurrence of the external cause; Y99.8 Other external cause status
CPT/HCPCS: 73502; 96372; 99283; J1885

== ENCOUNTER 2025-07-12 04:20 | Emergency (ER) | payer MEDICAID ==
[~2025-07-12] VITALS: Ht 154.9 cm; Wt 82.6 kg
[2025-07-12 04:21] VITALS: BP 161/101; PULSE 71; RESP 16; TEMP 97; O2SAT 100
[2025-07-12] MEDS: HYDROcodone-ACET 10/325MG TAB PO ONE (04:45)
--- NOTE | 2025-07-12 05:11 | DVH ---
CLINICAL INDICATION: Status post fall pain TECHNIQUE: 2 views XY R SHOULDER 2+ VIEW XRAY Comparison: None FINDINGS: Exam is limited by lack of orthogonal view. No evidence of acute fracture or dislocation. No appreciable degenerative change. Unremarkable soft tissues and imaged chest. IMPRESSION: 1. No acute osseous finding of the right shoulder.
[2025-07-12] MEDS: KETOROLAC TROMETH 60MG/2ML VIAL IM ONE (05:19)
[2025-07-12] MEDS ORDERED: NABU-72 PO (05:29)
--- NOTE | 2025-07-12 05:29 | ED.PDOC ---
Back pain HPI HPI Comments PT CAME TO THE ER WITH CC OF FALL INJURY, PT STATES SHE SLIPPED ON THE STEPS ON THE [place] LANDING IN THE WALKWAY ON THE RIGHT SIDE. PT IS A&OX4 RR EVEN AND REGULAR NO DISTRESS NOTED. PT REPORTS PAIN IN THE RIGHT SHOULDER. DENIES NUMBNESS, WEAKNES, NECK OR BACK PAIN. (-) HITTING HEAD (-) LOC Chief Complaint: Fall Injury Time Seen by MD: 04:33 Primary Care Provider: CINDY Villavicencio Notes: Nurses Notes, Medications, Allergies Allergies: Coded Allergies: NO KNOWN ALLERGIES (Unverified , 11/01/19) Home Meds Active Scripts Nabumetone (Nabumetone) 500 Mg Tab, 1 TAB PO BID PRN for 10 Days, #20 TAB Prov:DONNY COLON 07/12/25 Ibuprofen (Ibuprofen) 800 Mg Tab, 1 TAB PO TID, #30 TAB Prov:LEXI BRAVO 06/03/25 Naproxen (NAPROSYN TABLET) 500 Mg Tb, 500 MG GT BID for 10 Days, #20 TAB Prov:NOAH CAMILO MD 05/29/24 Acetaminophen (Acetaminophen) 500 Mg Tab, 500 MG PO Q6HPRN, #30 TAB 0 Refills Prov:RICHARD ARREDONDO 09/04/23 Cyclobenzaprine Hcl (Cyclobenzaprine Hcl) 5 Mg Tab, 1 TAB PO QPM PRN, #14 TAB 0 Refills Prov:RICHARD ARREDONDO 09/04/23 Ibuprofen (Ibuprofen) 800 Mg Tab, 1 TAB PO TID PRN, #30 TAB 0 Refills Prov:RICHARD ARREDONDO 01/22/23 Dexamethasone (Decadron) 6 Mg Tab, 6 MG PO DAILY, #7 TAB Prov:SANTA VALDEZ MD 07/25/21 Albuterol Sulfate (VENTOLIN MDI) 90 Mcg Ih, 90 MCG IN Q4HPRN PRN, #1 INHALER Prov:SANTA VALDEZ MD 07/25/21 Doxycycline Monohydrate (Doxycycline Monohydrate) 100 Mg Tab, 100 MG PO BID, #14 TAB Prov:SANTA VALDEZ MD 07/25/21 Information Source: Patient, Significant Other Mode of Arrival: Ambulatory Past Medical History PAST MEDICAL HISTORY: Anxiety Surgical History: , Hernia Repair, Tubal Ligation 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 Family History Family History: Reviewed,noncontributory to illness, Unknown Social History Smoker: Non-Smoker Alcohol: Occasionally Drugs: Denies Drug Use Lives In: Home All Other Systems: Reviewed and Negative (SEE HPI) Physical Exam General Appearance: No Apparent Distress, Normal HEENT: Normal ENT Inspection, Pharynx Normal, TMs Normal Neck: Full Range of Motion, Non-Tender Respiratory: Lungs Clear, No Respiratory Distress, Normal Breath Sounds Cardiovascular: No Edema, No JVD, No Murmur, No Gallop, Normal Peripheral Pulses, Regular Rate/Rhythm Breast Exam: Deferred Gastrointestinal: No Organomegaly, Non Tender, No Pulsatile Mass, Normal Bowel Sounds, Soft Genitalia: Deferred Pelvic: Deferred Rectal: Deferred Extremities: Normal capillary refill, Normal range of motion, Non-tender, No pedal edema Musculoskeletal : Location: Right Extremity Location: Shoulder (MODERATE TENDERNESS PALPATED OVER RIGHT SHOULDER GIRDLE. MOTION INTACT WITH MODERATE DISCOMFORT WITHOUT CREPITUS. STRENGTH SENSORY AND MOTION INTACT POSITIVE RADIAL PULSE NO NOTED LACERATIONS OR ABRASIONS ECCHYMOSIS OR EDEMA) Apperance: Normal Neurologic: Alert, No Motor Deficits, Normal Affect, Normal Mood, No Sensory Deficits Cerebellar Function: Normal Reflexes: NOT DONE Skin: Dry, Normal Color, Warm Lymphatic: No Adenopathy Was a procedure done? Was a procedure done?: No Back Pain Differential Dx Differential Diagnosis: Fracture, Musculoskeletal Pain X-Ray, Labs, Meds, VS Vital Signs Date Time Temp Pulse Resp B/P (MAP) Pulse Ox O2 Delivery O2 Flow Rate FiO2 07/12/25 04:21 97.0 71 16 161/101 100 97.0 07/12/25 04:21 Room Air Current Medications Medications (Trade) Dose Ordered Sig/Kamran Route Start Time Stop Time Status Last Admin Ketorolac Tromethamine (Toradol Injection) 60 mg ONCE ONCE IM 07/12/25 04:45 07/12/25 04:46 DC 07/12/25 05:19 X-Ray, Labs, Meds, VS Comment Right shoulder x-ray shows no acute fractures, dislocations, or osseous lesions. Patient placed in sling for comfort. Patient given Toradol 60 mg IM, refused [place] 5 mg p.o., she notes improvement in pain and function she is requesting discharge at this time. Script trial of NSAID. Advised take medication as prescribed side effects discussed. Advised on rice. Advised to follow up with her PCP in 2-3 days if no improvement consider further imaging such as MRI. ER return precautions given patient indicates understanding and agrees with discharge plan of care. Images Reviewed?: Images reviewed and evaluated by me Time of 1ST Reevaluation: 04:33 Reevaluation 1ST: Unchanged Time of 2ND Reevaluation: 05:25 Reevaluation 2ND: Improved Patient Education/Counseling: Diagnosis, Treatment, Need For Follow Up Family Education/Counseling: Diagnosis, Treatment SEPSIS Sepsis Screen Date sepsis recognized/suspect: Jul 12, 2025 Time Sepsis recognized/suspect: 424 Recent Procedure: No (T) On Antibiotic Therapy: No Respiratory Rate >20: No Heart Rate >90: No Temp<36 C (96.8 F) or >38.3 C: No SBP <90 or MAP <65 mmHG: No New Acute Mental Status Change: No Is the patient on CPAP, BIPAP,: No Physician Orders R Shoulder 2+ View Xray (07/12/25 04:37) Apply Sling (07/12/25 04:37) Vital Signs Date Time Temp Pulse Resp B/P (MAP) Pulse Ox O2 Delivery O2 Flow Rate FiO2 07/12/25 04:21 97.0 71 16 161/101 100 97.0 07/12/25 04:21 Room Air Medications Medications Dose Ordered Sig/Kamran Route Start Time Stop Time Status Last Admin Dose Admin Ketorolac Tromethamine 60 mg ONCE ONCE IM 07/12/25 04:45 07/12/25 04:46 DC 07/12/25 05:19 Departure 1 Departure Time of Disposition: 05:28 Impression: Primary Impression: Right shoulder strain Qualified Codes: S46.911A - Strain of unspecified muscle, fascia and tendon at shoulder and upper arm level, right arm, initial encounter Additional Impression: Ground-level fall Disposition: 01 HOME / SELF CARE / HOMELESS Condition: Stable e-Prescriptions Nabumetone (Nabumetone) 500 Mg Tab 1 TAB PO BID PRN for 10 Days, #20 TAB Prov: DONNY COLON 07/12/25 Discharged With: Significant Other Critical Care Note Critical Care Time?: No Stability Stability form required: DONNY Eldridge Jul 12, 2025 05:29
== END 2025-07-12 05:37 | disposition home or self-care (01) ==
LOC: ER 04:20
DX: S46.911A Strain of unspecified muscle, fascia and tendon at shoulder and upper arm level, right arm, initial encounter (principal); Z98.890 Other specified postprocedural states; Z98.51 Tubal ligation status; W10.9XXA Fall (on) (from) unspecified stairs and steps, initial encounter; Y93.89 Activity, other specified; Y92.89 Other specified places as the place of occurrence of the external cause; Y99.8 Other external cause status
CPT/HCPCS: 73030; 96372; 99283; J1885